=== PATIENT | female | born 1990 | race Caucasian/White ===

== ENCOUNTER 2023-11-28 03:55 | Emergency (ER) | payer OTHER ==
[~2023-11-28] VITALS: Ht 12.7 cm; Wt 68.0 kg
[2023-11-28 04:10] VITALS: BP_SYST 134; PULSE 88; RESP 16; TEMP 97.5; O2SAT 99
[2023-11-28] MEDS: LORazepam 1 MG TABLET PO ONE (04:32)
[2023-11-28 05:33] VITALS: BP_SYST 108; PULSE 96; RESP 16; TEMP 97.5; O2SAT 99
== END 2023-11-28 05:33 | disposition home or self-care (01) ==
LOC: SED 03:55
DX: F41.9 Anxiety disorder, unspecified (principal); F19.10 Other psychoactive substance abuse, uncomplicated; J45.909 Unspecified asthma, uncomplicated
CPT/HCPCS: 99283

== ENCOUNTER 2024-01-20 08:43 | Emergency (ER) | payer OTHER ==
[~2024-01-20] VITALS: Ht 160 cm; Wt 65.8 kg
[2024-01-20 08:58] VITALS: BP_SYST 120; PULSE 110; RESP 16; TEMP 96.9; O2SAT 99
[2024-01-20 09:29] LABS: BILIRUBIN,URINE NEGATIVE (NEGATIVE); BLOOD, URINE NEGATIVE (NEGATIVE); COLOR,URINE YELLOW (YELLOW); GLUCOSE,URINE NEGATIVE (NEGATIVE); KETONES,URINE TRACE (NEGATIVE); LEUKOCYTE ESTERASE ,URINE TRACE (NEGATIVE); NITRITE, URINE POSITIVE (NEGATIVE); PROTEIN URINE NEGATIVE (NEGATIVE); UROBILINOGEN,URINE 0.2 (0.2-1.0)
[2024-01-20 09:40] LABS: CLARITY/URINE HAZY (CLEAR)
[2024-01-20 09:51] LABS: BASOPHILS % (AUTO) 0.7 % (0.0-2.0); EOSINOPHILS # (AUTO) 0.1 K/uL (0.0-0.4); EOSINOPHILS % (AUTO) 3.1 % (0.0-4.0); HEMATOCRIT 42.6 % (36-48); HEMOGLOBIN 13.9 g/dL (12.0-16.0); LYMPHOCYTES % (AUTO) 23.4 % (20.5-51.5); MEAN CORPUSCULAR HEMOGLOBIN 29 pg (27-31); MEAN CORPUSCULAR HGB CONC 33 % (32-36); MEAN CORPUSCULAR VOLUME 89 fL (79.0-98.0); MONOCYTES # (AUTO) 0.5 K/uL (0.0-1.0); MONOCYTES % (AUTO) 11.4 % (1.7-9.3); NEUTROPHILS # (AUTO) 2.5 K/uL (1.8-7.7); NEUTROPHILS % (AUTO) 61.4 % (40.0-70.0); PLATELET COUNT (AUTO) 111 K/uL (130-430); RED BLOOD CELL COUNT(AUTO) 4.77 MIL/uL (4.2-6.2); RED CELL DISTRIBUTION WIDTH 16.1 % (9.0-15.0); WHITE BLOOD COUNT (AUTO) 4.1 K/uL (4.8-10.8)
[2024-01-20] MEDS: predniSONE 20 MG TABLET PO ONE (09:53)
[2024-01-20 10:06] LABS: BARBITURATE, URINE NEGATIVE (NEG <=200); BENZODIAZEPINE, URINE NEGATIVE (NEG <=150); CANNABINOID, URINE NEGATIVE (NEG <=50); COCAINE, URINE NEGATIVE (NEG <=150); METHAMPHETAMINES SCREEN,URINE NEGATIVE (NEG <=500); OPIATE, URINE NEGATIVE (NEG <=100); PHENCYCLIDINE SCREEN,URINE NEGATIVE (NEG <=25); UR TRICYCLIC ANTIDEPRESSANTS NEGATIVE (NEG <=300); URINE AMPHETAMINE NEGATIVE (NEG <=500); URINE METHADONE NEGATIVE (NEG <=200); URINE OXYCODONE SCREEN NEGATIVE (NEG <=100)
[2024-01-20 10:19] LABS: ANION GAP 10 (5-15); CALCIUM 9.3 mg/dL (8.4-11.0); CARBON DIOXIDE 26 mmol/L (23-29); CHLORIDE 103 mmol/L (98-107); GFR AFRICAN AMERICAN 105 mL/min (>90); GLUCOSE 87 mg/dL (74-106); LIPASE 35 U/L (16-77); POTASSIUM 3.9 mmol/L (3.5-5.1); SODIUM SERUM 139 mmol/L (136-145); UREA NITROGEN, BLOOD 9 mg/dL (8-21)
[2024-01-20 10:23] LABS: ALCOHOL, BLOOD < 3 mg/dL (<10); GFR NON AFRICAN-AMERICAN 87 mL/min (>90)
[2024-01-20 10:33] LABS: BACTERIA,URINE MANY /HPF (None Seen); RBC,URINE 0-3 /HPF (0-3)
[2024-01-20 10:34] LABS: MUCUS,URINE None Seen /LPF (None Seen)
[2024-01-20] MEDS ORDERED: PRED20TA PO (11:11)
[2024-01-20] MEDS ORDERED: NITR-85 PO (11:11)
[2024-01-20] MEDS ORDERED: ACET-2634 PO (11:11)
[2024-01-20 11:59] VITALS: BP_SYST 122; PULSE 87; RESP 17; TEMP 96.9; O2SAT 99
== END 2024-01-20 11:54 | disposition home or self-care (01) ==
LOC: SED 08:43
DX: N39.0 Urinary tract infection, site not specified (principal); R07.89 Other chest pain; J45.909 Unspecified asthma, uncomplicated; Z88.0 Allergy status to penicillin; Z88.1 Allergy status to other antibiotic agents; Z79.52 Long term (current) use of systemic steroids
CPT/HCPCS: 99285; 71045; 80307; 80048; 83690; 85025; 87086; 84484; 36415; 93005; 81025; 81000; 81001; 81015; G0482